=== PATIENT | female | born 1965 | race Caucasian/White ===

== ENCOUNTER 2021-02-18 16:43 | Emergency (ER) | payer OTHER ==
[~2021-02-18 16:43] MED LIST: CORTIZONE-1057 GM TP; MEDROL4 MG PO; MOBIC7.5 MG PO; PREDNISONE 50 M50 MG PO
== END 2021-02-18 17:08 | disposition left against medical advice (07) ==
LOC: ER1 16:43
DX: Z53.21 Procedure and treatment not carried out due to patient leaving prior to being seen by health care provider (principal)

== ENCOUNTER 2021-02-25 18:03 | Emergency (ER) | payer OTHER ==
[2021-02-25] MEDS ORDERED: LODINE CAP 300300 MG PO (20:00)
== END 2021-02-25 20:05 | disposition home or self-care (01) ==
LOC: ER1 18:03
DX: S50.11XA Contusion of right forearm, initial encounter (principal); S60.211A Contusion of right wrist, initial encounter; F17.210 Nicotine dependence, cigarettes, uncomplicated; Z88.8 Allergy status to other drugs, medicaments and biological substances; W19.XXXA Unspecified fall, initial encounter; Y92.009 Unspecified place in unspecified non-institutional (private) residence as the place of occurrence of the external cause
CPT/HCPCS: 73110; 99283

== ENCOUNTER 2021-05-19 16:19 | Emergency (ER) | payer OTHER ==
[~2021-05-19 16:19] MED LIST changes: +LODINE CAP 300300 MG PO
[2021-05-19] MEDS ORDERED: ENDOCET 5-3251 EACH PO (17:26)
== END 2021-05-19 17:55 | disposition home or self-care (01) ==
LOC: ER1 16:19
DX: S52.601A Unspecified fracture of lower end of right ulna, initial encounter for closed fracture (principal); M06.9 Rheumatoid arthritis, unspecified; W22.8XXA Striking against or struck by other objects, initial encounter; Y92.009 Unspecified place in unspecified non-institutional (private) residence as the place of occurrence of the external cause
CPT/HCPCS: 29125; 73090; 73130; 73630; 96372; 99283

== ENCOUNTER 2021-06-28 13:22 | Emergency (ER) | payer OTHER ==
[~2021-06-28 13:22] MED LIST changes: +ENDOCET 5-3251 EACH PO
[2021-06-28] MEDS ORDERED: NAPROXEN500 MG PO (14:09)
== END 2021-06-28 14:21 | disposition home or self-care (01) ==
LOC: ER1 13:22
DX: M79.631 Pain in right forearm (principal); I10 Essential (primary) hypertension; F17.290 Nicotine dependence, other tobacco product, uncomplicated; Z90.49 Acquired absence of other specified parts of digestive tract; Z88.5 Allergy status to narcotic agent; Z88.8 Allergy status to other drugs, medicaments and biological substances
CPT/HCPCS: 29125; 99283

== ENCOUNTER 2021-07-06 01:55 | Emergency (ER) | payer OTHER ==
[~2021-07-06 01:55] MED LIST changes: +NAPROXEN500 MG PO
[2021-07-06 02:37] LABS: RED BLOOD COUNT 5.07 M/UL (4.00-5.10); WHITE BLOOD COUNT 6.8 K/UL (4.5-11.0)
[2021-07-06 02:50] LABS: BUN/CREATININE RATIO 19 (0-10)
[2021-07-06] MEDS ORDERED: ZOFRAN ODT 4 MG4 MG SL (07:10)
== END 2021-07-06 07:15 | disposition home or self-care (01) ==
LOC: ER1 01:55
PROVIDERS: Emergency Medicine
DX: R10.13 Epigastric pain (principal); Z20.822 Contact with and (suspected) exposure to COVID-19; R11.0 Nausea; Z90.49 Acquired absence of other specified parts of digestive tract; Z88.6 Allergy status to analgesic agent; F17.200 Nicotine dependence, unspecified, uncomplicated
CPT/HCPCS: 80053; 82550; 82553; 83690; 83874; 84484; 85025; 93005; 96374; 99284; G0480; J2405; U0002

== ENCOUNTER 2021-09-24 23:58 | Emergency (ER) | payer OTHER ==
[~2021-09-24 23:58] MED LIST changes: +ZOFRAN ODT 4 MG4 MG SL
[2021-09-25 01:27] LABS: HEMOGLOBIN 12.9 gm/dl (12.3-15.3); RED BLOOD COUNT 4.73 M/UL (4.00-5.10); WHITE BLOOD COUNT 8.4 K/UL (4.5-11.0)
[2021-09-25 01:52] LABS: BUN/CREATININE RATIO 14 (0-10)
[2021-09-25] MEDS ORDERED: BENZONATATE200 MG PO (04:08)
[2021-09-25] MEDS ORDERED: ZYRTEC10 MG PO (04:08)
== END 2021-09-25 04:20 | disposition home or self-care (01) ==
LOC: ER1 23:58
PROVIDERS: Preventive Medicine Occupational Medicine
DX: J30.9 Allergic rhinitis, unspecified (principal); R05.3 Chronic cough; Z20.822 Contact with and (suspected) exposure to COVID-19
CPT/HCPCS: 0240U; 71046; 80053; 85025; 85379; 85652; 86140; 94664; 96374; 99283; J0696; J7030; Q9967

== ENCOUNTER 2021-10-19 23:26 | Emergency (ER) | payer OTHER ==
[~2021-10-19 23:26] MED LIST changes: +BENZONATATE200 MG PO; +ZYRTEC10 MG PO
[2021-10-20] MEDS ORDERED: IBUPROFEN600 MG PO (00:26)
== END 2021-10-20 00:40 | disposition home or self-care (01) ==
LOC: ER1 23:26
DX: S61.012A Laceration without foreign body of left thumb without damage to nail, initial encounter (principal); F17.210 Nicotine dependence, cigarettes, uncomplicated; W45.8XXA Other foreign body or object entering through skin, initial encounter; Y93.9 Activity, unspecified; Y92.009 Unspecified place in unspecified non-institutional (private) residence as the place of occurrence of the external cause
CPT/HCPCS: 73130; 99283